=== PATIENT | female | born 1980 | race Caucasian/White ===

== ENCOUNTER 2020-11-18 18:45 | Emergency (ER) | payer OTHER, SELFPAY ==
[2020-11-18 19:15] VITALS: BP 112/60; PULSE 84; RESP 18; TEMP 37; O2SAT 98
--- NOTE | 2020-11-18 20:10 | ED.URI ---
HPI - URI/Sore Throat General Chief Complaint: Upper Respiratory Infection <Tanisha Garcia NP - Last Filed: 11/22/20 13:36> Stated Complaint: Sore Throat <Tanisha Garcia NP - Last Filed: 11/22/20 13:36> Time Seen by Provider: 11/18/20 20:11 <Tanisha Garcia NP - Last Filed: 11/22/20 13:36> Source: patient, RN notes reviewed and old records reviewed <Tanisha Garcia NP - Last Filed: 11/22/20 13:36> Mode of arrival: ambulatory <Tanisha Garcia NP - Last Filed: 11/22/20 13:36> Limitations: no limitations <Tanisha Garcia NP - Last Filed: 11/22/20 13:36> History of Present Illness HPI Narrative: 40 year old female who presents to [facility] care with complaints of 2 day history of sore throat. Patient states that she was recently treated for strep throat approximately 2 weeks ago and she completed all doses of oral antibiotic. Patient admits to not changing her tooth brush states that she forgot about it. Patient denies any known fevers, chills or sweats, denies any cough or ear pain,states some clear nasal drainage states no feelings of sinus pressure or any headache pain. <Tanisha Garcia NP - Last Filed: 11/22/20 13:36> MD elicited complaint: sore throat <Tanisha Garcia NP - Last Filed: 11/22/20 13:36> Pertinent past history: other (previous strep throat 2 weeks ago.) <Tanisha Garcia NP - Last Filed: 11/22/20 13:36> Onset (ago): day(s) (2) <Tanisha Garcia NP - Last Filed: 11/22/20 13:36> Consistency: constant <Tanisha Garcia NP - Last Filed: 11/22/20 13:36> Severity: mild <Tanisha Garcia NP - Last Filed: 11/22/20 13:36> Pain scale (0-10): 3 <Tanisha Garcia NP - Last Filed: 11/22/20 13:36> Able to tolerate fluids by mouth: Yes <Tanisha Garcia NP - Last Filed: 11/22/20 13:36> Exacerbating factors: swallowing <Tanisha Garcia NP - Last Filed: 11/22/20 13:36> Associated symptoms: sore throat <Tanisha Garcia NP - Last Filed: 11/22/20 13:36> Treatments prior to arrival: none <Tanisha Garcia NP - Last Filed: 11/22/20 13:36> Related Data Home Medications: Home Medications Medication Instructions Recorded Confirmed duloxetine mg PO 11/18/20 trazodone 11/18/20 <Tanisha Garcia NP - Last Filed: 11/22/20 13:36> Allergies/Adverse Reactions: Allergies Allergy/AdvReac Type Severity Reaction Status Date / Time No Known Allergies Allergy Unverified 11/18/20 19:28 <Tanisha Garcia NP - Last Filed: 11/22/20 13:36> Review of Systems Review of Systems: Narrative: CONSTITUTIONAL: Denies fever, chills, or sweats. EYES: Denies visual changes, redness, or discharge. ENT: Positive rhinorrhea, no congestion, positive for sore throat, no otalgia. CARDIOVASCULAR: Denies chest pain, palpitations, or edema. RESPIRATORY: Denies cough or dyspnea. GASTROINTESTINAL: Denies abdominal pain, nausea, vomiting, or diarrhea. GENITOURINARY: Denies dysuria or hematuria. SKIN: Denies rash or itching. MUSCULOSKELETAL: Denies back pain, joint pain, or myalgia. NEUROLOGIC: Denies headache, numbness, or weakness. PSYCHIATRIC:Positive history of anxiety or depression. <Tanisha Garcia NP - Last Filed: 11/22/20 13:36> All systems reviewed & are unremarkable except as noted in HPI and below <Tanisha Garcia NP - Last Filed: 11/22/20 13:36> PMFSH Past Medical History Medical History: Medical History (Updated 11/22/20 @ 13:35 by Tanisha Garcia NP) Asthma Depression Endometriosis URI, acute <Tanisha Garcia NP - Last Filed: 11/22/20 13:36> Surgical History Surgical History: Surgical History (Updated 11/22/20 @ 13:28 by Tanisha Garcia NP) Previous section <Tanisha Garcia NP - Last Filed: 11/22/20 13:36> Family History Family History: Family History (Updated 11/22/20 @ 13:33 by Tanisha Garcia NP) Other No si
== END 2020-11-18 20:39 | disposition home or self-care (01) ==
PROVIDERS: Emergency Provider Registered Nurse; PCP Physician Assistant
DX: J06.9 Acute upper respiratory infection, unspecified (principal); F17.200 Nicotine dependence, unspecified, uncomplicated; J45.909 Unspecified asthma, uncomplicated; N80.9 Endometriosis, unspecified
CPT/HCPCS: 87081; 87147; 87880; 99203; G0463

== ENCOUNTER 2021-01-04 11:02 | Emergency (ER) | payer OTHER, SELFPAY ==
[2021-01-04 11:03] VITALS: BP 128/78; PULSE 72; RESP 14; TEMP 37.1; O2SAT 98
--- NOTE | 2021-01-04 11:56 | ED.DENTAL ---
HPI - Dental/Oral General Chief complaint: Dental/Oral Stated complaint: Broken Tooth on right side, also pain in the Tooth Time Seen by Provider: 01/04/21 11:44 Source: patient and RN notes reviewed Mode of arrival: ambulatory Limitations: no limitations History of Present Illness HPI Narrative: Patient presents today complaining of a broken tooth x2 days. Broke off while she was eating. States severe pain that she currently rates 10/10. She states she has tried Tylenol, heat, ice, and multiple home remedies without relief. Describes the pain as throbbing. States she does have a dentist that she has not yet contacted. Denies shortness of breath, fever, difficulty swallowing. She was recently on amoxicillin in November for strep throat. She was also recently on Macrobid for a UTI. MD Complaint: tooth pain Related Data Home Medications Medication Instructions Recorded Confirmed duloxetine 60 mg PO DAILY 11/18/20 01/04/21 trazodone 50 mg PO HS 11/18/20 01/04/21 Allergies Allergy/AdvReac Type Severity Reaction Status Date / Time No Known Allergies Allergy Verified 01/04/21 11:15 Review of Systems Review of Systems: CONSTITUTIONAL: Denies body aches, fever, chills, or sweats. EYES: Denies visual changes, redness, or discharge. ENT: Denies rhinorrhea, congestion, sore throat, or otalgia.+ Tooth pain CARDIOVASCULAR: Denies chest pain, palpitations, or edema. RESPIRATORY: Denies cough or dyspnea. GASTROINTESTINAL: Denies abdominal pain, nausea, vomiting, or diarrhea. GENITOURINARY: Denies dysuria or hematuria. SKIN: Denies rash, itching, or wounds. MUSCULOSKELETAL: Denies back pain, joint pain, or myalgia. NEUROLOGIC: Denies headache, numbness, tingling, or weakness. PSYCH: Denies depression or anxiety. [facility] Past Medical History Medical History Asthma Depression Endometriosis URI, acute Surgical History Surgical History Previous section Family History Family History Other No significant family history Social History Social History Smoking status: Current every day smoker Alcohol intake: current Alcohol use details: social Substance use: never Gender identity (if verbalized by the patient): Female Comments At time of signature, I have reviewed and agree with nursing past medical, surgical, social and family history unless otherwise noted. Please see nursing chart for further information. There is no relevant family history pertinent to the presenting complaint Exam Narrative: GENERAL: Well-appearing, well-nourished, and in no acute distress. HEAD: Normocephalic, atraumatic. EYES: EOMI. No redness or drainage. Conjunctivae normal. ENT: Mucous membranes pink and moist. Tooth #28 is broken off at the gumline and brown in color. Surrounding gumline is erythematous and swollen. NECK: Normal AROM. Supple. No lymphadenopathy. CHEST: No respiratory distress. Clear to auscultation. HEART: Regular rate and rhythm. No murmur appreciated. Normal peripheral pulses. EXTREMITIES: Normal range of motion. No edema. SKIN: Warm, dry, no rash. Capillary refill normal. Normal skin turgor. NEURO: No focal deficits. Alert and oriented x3. Gait steady. PSYCH: Normal affect. No signs of depression or anxiety. Course Vital Signs Vital signs: Vital Signs Temperature 98.7 F 01/04/21 11:03 Pulse Rate 72 01/04/21 11:03 Respiratory Rate 14 01/04/21 11:03 Blood Pressure 128/78 01/04/21 11:03 Pulse Oximetry 98 01/04/21 11:03 Temperature 98.7 F 01/04/21 11:03 Pulse Rate 72 01/04/21 11:03 Respiratory Rate 14 01/04/21 11:03 Blood Pressure 128/78 01/04/21 11:03 Pulse Oximetry 98 01/04/21 11:03 Reviewed. Pt has been instructed to f
== END 2021-01-04 12:08 | disposition home or self-care (01) ==
PROVIDERS: Emergency Provider Nurse Practitioner; PCP Physician Assistant
DX: S02.5XXA Fracture of tooth (traumatic), initial encounter for closed fracture (principal); X58.XXXA Exposure to other specified factors, initial encounter; F17.200 Nicotine dependence, unspecified, uncomplicated; J45.909 Unspecified asthma, uncomplicated; F32.9 Major depressive disorder, single episode, unspecified; N80.9 Endometriosis, unspecified
CPT/HCPCS: 99213; G0463

== ENCOUNTER 2023-03-27 18:52 | Emergency (ER) | payer OTHER, SELFPAY ==
[2023-03-27 19:00] VITALS: BP 108/80; PULSE 109; RESP 18; TEMP 37; O2SAT 97
--- NOTE | 2023-03-27 19:09 | ED.NAVMDI ---
HPI - Nausea/Vomiting/Diarrhea General Chief complaint: Nausea/Vomiting/Diarrhea Stated complaint: Stomach Flu History of Present Illness HPI Narrative: PATIENT PRESENTS WITH RESOLVING NAUSEA AND VOMITING. PATIENT STATES SHE NEEDS A NOTE TO RETURN TO WORK. TOLERATING FLUIDS WELL AND NORMAL URINATION NO ABDOMINAL PAIN AND NO FEVER. Related Data Home Medications Medication Instructions Recorded Confirmed sertraline 100 mg tablet 100 mg PO DIRECTED 03/27/23 03/27/23 Allergies Allergy/AdvReac Type Severity Reaction Status Date / Time No Known Allergies Allergy Verified 03/27/23 19:04 Review of Systems Review of Systems: CONSTITUTIONAL: DENIES FEVER, CHILLS, OR SWEATS. EYES: DENIES VISUAL CHANGES, REDNESS, OR DISCHARGE. ENT: DENIES RHINORRHEA, CONGESTION, SORE THROAT, OR OTALGIA. CARDIOVASCULAR: DENIES CHEST PAIN, PALPITATIONS, OR EDEMA. RESPIRATORY: DENIES COUGH OR DYSPNEA. GASTROINTESTINAL: DENIES ABDOMINAL PAIN, NAUSEA, VOMITING, OR DIARRHEA. GENITOURINARY: DENIES DYSURIA OR HEMATURIA. SKIN: DENIES RASH OR ITCHING. MUSCULOSKELETAL: DENIES BACK PAIN, JOINT PAIN, OR MYALGIA. NEUROLOGIC: DENIES HEADACHE, NUMBNESS, OR WEAKNESS. PSYCHIATRIC: DENIES ANXIETY OR DEPRESSION. PMFSH Past Medical History Medical History Asthma Depression Endometriosis URI, acute Surgical History Surgical History Previous section Family History Family History Other No significant family history Social History Social History Smoking status: Current every day smoker Alcohol intake: current Alcohol use details: social Substance use: never Living arrangements: with family Gender identity (if verbalized by the patient): Female Comments AT TIME OF SIGNATURE, AGREE WITH NURSING PAST MEDICAL, SURGICAL, SOCIAL AND FAMILY HISTORY. THERE IS NO RELEVANT FAMILY HISTORY PERTINENT TO THE PRESENTING COMPLAINT Exam Narrative: GENERAL: WELL-APPEARING, WELL-NOURISHED, AND IN NO ACUTE DISTRESS. HEAD: NORMOCEPHALIC, ATRAUMATIC. EYES: PERRLA AND EOMI. ENT: NARES CLEAR, NO RHINORRHEA OR EPISTAXIS. MUCOUS MEMBRANES MOIST. NECK: SUPPLE. CHEST: CLEAR TO AUSCULTATION. NO RESPIRATORY DISTRESS. HEART: REGULAR RATE AND RHYTHM. NO MURMUR HEARD. NORMAL PERIPHERAL PULSES. ABDOMEN: SOFT, NONTENDER, NONDISTENDED, NORMAL ACTIVE BOWEL SOUNDS. EXTREMITIES: NORMAL RANGE OF MOTION. NO EDEMA. SKIN: WARM, DRY, NO RASH. NEURO: NO FOCAL DEFICITS. ALERT AND ORIENTED X3. RUSTY COMA SCALE EYE OPENING: SPONTANEOUS 4 RUSTY COMA SCALE MOTOR: OBEYS COMMANDS 6 RUSTY COMA SCALE VERBAL: ORIENTED 5 RUSTY COMA SCALE TOTAL 15 Course Course Level of Care: Express Care Visit Vital Signs Vital signs: Vital Signs Temperature 37.0 C 03/27/23 19:00 Pulse Rate 109 H 03/27/23 19:00 Respiratory Rate 18 03/27/23 19:00 Blood Pressure 108/80 03/27/23 19:00 Pulse Oximetry 97 03/27/23 19:00 Oxygen Delivery Room Air 03/27/23 19:00 Temperature 37.0 C 03/27/23 19:00 Pulse Rate 109 H 03/27/23 19:00 Respiratory Rate 18 03/27/23 19:00 Blood Pressure 108/80 03/27/23 19:00 Pulse Oximetry 97 03/27/23 19:00 Oxygen Delivery Room Air 03/27/23 19:00 Discharge Plan Discharge Clinical Impression: Encounter to obtain excuse from work Patient Disposition: Home, Self-Care Condition: Stable Additional Instructions: CLEAR LIQUIDS FOR THE NEXT 8-10 HOURS, THEN ADVANCE TO A BLAND DIET TOLERATED A BLAND DIET CAN CONSIST OF--BRAT DIET WHICH IS BANANAS, RICE, APPLESAUCE, AND TOAST AVOID FRIED, GREASY, FATTY, FRIED FOODS AVOID CAFFEINE, NICOTINE, AND ALCOHOL RETURN TO YOUR REGULAR DIET IN THE NEXT 3-4 DAYS MEDICATION DIRECTED FOR NAUSEA AN
== END 2023-03-27 19:13 | disposition home or self-care (01) ==
PROVIDERS: Emergency Provider Nurse Practitioner Family
DX: Z02.79 Encounter for issue of other medical certificate (principal); F17.200 Nicotine dependence, unspecified, uncomplicated; Z79.899 Other long term (current) drug therapy
CPT/HCPCS: 99211; G0463